=== PATIENT | male | born 2000 | race Caucasian/White ===

== ENCOUNTER → 2020-09-18 | Outpatient (CLI) | payer OTHER, SELFPAY | END | disposition home or self-care (01) | LOC: LABSPEC 17:42 | PROVIDERS: PCP Family Medicine; Referring Provider Family Medicine; Visit Provider Family Medicine | DX: U07.1 COVID-19 (principal) | CPT/HCPCS: 87635; U0003 ==

== ENCOUNTER 2021-11-19 13:46 | Outpatient (CLI) | payer OTHER, SELFPAY | END 2021-11-19 23:59 | disposition short-term general hospital (02) | PROVIDERS: PCP Family Medicine; Referring Provider Family Medicine; Visit Provider Family Medicine | DX: U07.1 COVID-19 (principal) | CPT/HCPCS: 87635; U0003; U0005 ==

== ENCOUNTER → 2025-08-20 | Outpatient (CLI) | payer OTHER, SELFPAY ==
[2025-08-21 14:27] LABS: Mucous, Urine 0 SEEN /hpf (<or=2+); Red Blood Cells-Urine 0 SEEN /hpf (0-5)
[2025-08-21 18:20] LABS: Color, Urine Yellow (Yellow); Glucose, Dipstick Normal (Normal); Ketone-Dipstick Negative (Negative); Leukocyte Esterase-Dipstick Negative /ul (Negative); Nitrite-Dipstick Negative (Negative); Occult Blood-Urine 50 /ul (Negative); Protein-Dipstick Negative (Negative); Specific Gravity, Urine 1.010 (1.002-1.030); Urine Bilirubin Dipstick Negative (Negative)
[2025-08-21 20:08] LABS: Squamous Epithelial Cells - UA 0-5 SEEN /hpf (0-5)
== END | disposition home or self-care (01) ==
LOC: LABSPEC 08-21 14:26
PROVIDERS: PCP Family Medicine; Visit Provider Family Medicine
DX: R10.9 Unspecified abdominal pain (principal)
CPT/HCPCS: 81001; 87086

== ENCOUNTER 2025-11-04 16:38 | Emergency (ER) | payer OTHER, SELFPAY ==
[2025-11-04 16:39] VITALS: BP 155/100; PULSE 86; RESP 15; TEMP 36.1; O2SAT 97; BMI 24.3
--- NOTE | 2025-11-04 16:58 | EKG12_ITS ---
Test Reason : CP Blood Pressure : */* mmHG Vent. Rate : 74 BPM Atrial Rate : 74 BPM P-R Int : 146 ms QRS Dur : 90 ms QT Int : 382 ms P-R-T Axes : 77 27 42 degrees QTcB Int : 424 ms Normal sinus rhythm with sinus arrhythmia Normal ECG Confirmed by Temo Campbell ([id number]), avid editor CARLOS TOLEDO ([id number]) on 11/10/2025 9:02:29 AM Referred By: AK/TA Confirmed By: Temo Campbell
--- NOTE | 2025-11-04 17:00 | EDS_ITS ---
HPI History of Present Illness Chief Complaint: Chest Pain Narrative Narrative: Chief complaint and HPI: 25-year-old male with past medical history of asthma, anxiety presents for evaluation of chest pain. Patient states that he has had intermittent chest pain in the past in which they were related to panic attacks. States he is supposed to be on Lexapro. States he ran out for the past month in which she has noticed that his anxiety has been worse. Patient states the last 2 days he has been having intermittent chest pain which he describes as sharp. 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 Pain is intermittent. He denies any fever, chills, shortness of breath, abdominal pain, nausea, vomiting. He is a non-smoker. No history of CAD. Review of systems: See HPI Medications: As listed on the chart Allergies: As listed on the chart PFSH: Per chart Vital signs: As listed on the chart. Reviewed. Physical exam: Gen: A&O x3, NAD but mildly anxious Head: Normocephalic, atraumatic Eyes: No sclera icterus, conjunctiva clear ENT: Moist mucous membranes Neck: Trachea midline, No JVD CV: RRR, no murmurs, no peripheral edema Resp: Lungs CTA BL, no w/r/c GI: Abd soft, non-distended, non-tender, no r/r/g Musc: Full ROM, no deformity Skin: Warm, dry Neuro: Alert, oriented, grossly intact, sensation intact Psych: Cooperative, appropriate mood and affect but mildly anxious PFS PFSH Medical History Asthma exacerbation Left lower lobe pulmonary infiltrate Home Medications ?Medication ?Instructions ?Recorded ?Last Taken ?Type NK 11/04/25 Unknown History Allergy/AdvReac Type Severity Reaction Status Date / Time No Known Allergies Allergy Verified 11/04/25 16:40 Social History Smoking Status: Never smoker EXAM Physical Exam Const Vital Signs: 11/04/25 16:39 11/04/25 16:44 11/04/25 18:39 Temperature 97 F L Temperature Source Temporal Pulse Rate 86 53 L Respiratory Rate 15 16 Respiratory Effort Normal Respiratory Pattern Normal Blood Pressure 155/100 H 123/72 H Blood Pressure Mean 118 89 Pulse Ox 97 Oxygen Delivery Method Room Air Room Air MDM MDM MDM Narrative Medical decision making narrative: 25-year-old male with past medical history of asthma, anxiety presents for evaluation of chest pain. Patient states that he has had intermittent chest pain in the past in which they were related to panic attacks. States he is supposed to be on Lexapro. States he ran out for the past month in which she has noticed that his anxiety has been worse. Patient states the last 2 days he has been having intermittent chest pain which he describes as sharp. Differential diagnosis includes but is not limited to myofascial spasm, pleurisy, anxiety, arrhythmia, electrolyte abnormality, suspect less likely ACS. Aspirin ordered. Patient is mildly anxious on exam, he was offered Ativan but declined. Cardiac workup ordered.CBC unremarkable without anemia or leukocytosis. D-dimer unremarkable. BMP unremarkable. Troponin unremarkable x 2. On reevaluation, patient is asymptomatic. At this point in time, no clear etiology for his chest pain however may be related to musculoskeletal with anxiety. Recommend following up with primary care physician. Patient agreement understand the plan. Patient will discharge home. Return precautions explained. EKG: Interpreted by me/EM physician: EKG shows normal sinus rhythm with sinus arrhythmia. Heart rate 74. No QTc prolongation. No acute ischemic changes. Diagnostic: Interpreted by me/EM physician:Chest x-ray without pneumonia, effusion, cardiomegaly, pneumothorax Impression: 1. Chest pain 2. Anxiety with history of anxiety Lab Data Labs: Laboratory Results - last 24 hr 11/04/25 11/04/25 17:11 19:10 WBC 7.7 RBC 5.54 Hgb 15.6 Hct 46.2 MCV 83.4 MCH 28.2 MCHC 33.8 RDW Std Deviation 40.3 RDW Coeff of Dylan 13.2 Plt Count 289 MPV 9.0 Immature Gran % (Auto) 0.400 Neut % (Auto) 64.6 Lymph % (Auto) 25.8 [place] % (Auto) 8.1 Eos % (Auto) 0.6 Baso % (Auto) 0.5 Absolute Neuts (auto) 5.0 Absolute Lymphs (auto) 2.00 Nucleated RBC % 0 D-Dimer Quant (PE/DVT) 0.27 Sodium 140 Potassium 3.9 Chloride 103 Carbon Dioxide 25.7 Anion Gap 11 BUN 12 Creatinine 0.83 Estim Creat Clear Calc 138.04 Est GFR (MDRD) Non-Af 123 BUN/Creatinine Ratio 13.9 Glucose 109 H Calcium 9.8 Troponin T High Sens 6 Troponin T Hi Sens 2 Hr < 6 Radiography Diagnostic Testing: Clinical Impression(s) from Imaging Studies Chest X-Ray 11/04/25 17:12 IMPRESSION: No focal consolidations Reading Location: [facility] Discharge Plan Triage Chief Complaint: Chest Pain ED Provider: Ranjit Walls Dx/Rx/DC Orders Prescriptions: No Action NK Primary Care Provider: Darius Castano Referrals: Darius Castano MD [Primary Care Provider, Family Practice] Print Language: [place]
--- NOTE | 2025-11-04 17:12 | RAD_ITS ---
PROCEDURE: CHEST PA AND LATERAL 11/04/2025 REASON FOR EXAM: CHEST PAIN TECHNIQUE: Procedure Code: RADCXR Modality: DX Procedure: CHEST PA AND LATERAL FINDINGS: No focal consolidation. No pleural effusion or pneumothorax. Cardiac silhouette is within normal limits. No acute fractures. RAD/Chest PA and Lateral IMPRESSION: No focal consolidations Reading Location: [facility]
[2025-11-04 17:21] LABS: Hematocrit 46.2 % (40-54); Hemoglobin 15.6 g/dL (13.0-16.5); Immature Granulocytes Count 0.030 X10^3/uL (0.0-0.0); Mean Corp Hgb Conc 33.8 g/dL (32-36); Mean Corpuscular Volume 83.4 fL (80-94); Mean Platelet Vol. 9.0 fl (6.2-12.0); NRBC Flagged by Analyzer 0 % (0-5); Platelet Count 289 K/mm3 (150-450); RBC Distribution Width CV 13.2 % (11.6-14.6); RBC Distribution Width SD 40.3 fl (35.1-43.9); Red Blood Count 5.54 M/mm3 (4.6-6.2); White Blood Count 7.7 K/mm3 (4.4-11.0)
[2025-11-04 17:36] LABS: D-Dimer Quantitative (DVT/PE) 0.27 FEU/ug/m (0.27-0.49)
[2025-11-04 17:42] LABS: Anion Gap 11 (7-18); BUN 12 mg/dL (4-19); BUN/Creat Ratio 13.9 RATIO (10-20); Calcium,Total 9.8 mg/dL (7.6-11.0); Carbon Dioxide 25.7 mmol/L (20.0-29.0); Chloride 103 mmol/L (96-106); Estimated Creatinine Clearance 138.04 ml/min (50-250); Glucose 109 mg/dL (70-99); Potassium 3.9 mmol/L (3.5-5.1); Troponin T High Sensitivity 6 ng/L (<=22)
[2025-11-04 18:39] VITALS: BP 123/72; PULSE 53; RESP 16
[2025-11-04 19:35] LABS: Troponin T High Sens 2 HR < 6 ng/L (<=22)
[2025-11-04 19:48] VITALS: BP 122/79; PULSE 61; RESP 18; TEMP 36.1; O2SAT 98
--- OUTSIDE RECORDS SUMMARY | 2025-11-04 20:27 | XMS RPT_ITS | CCD ---
Author Organization [facility] Care Team Providers Care Associate Financial Planner Name Role Phone Eyad HERNANDEZ, Dr. Mccoy Primary Care Provider Dr. Darius Castano MD Referring Provider Isidoro Younger Attending Provider [phone] Omid BARRETO Attending Unavailable Darius Castano Attending Unavailable Darius Castano Primary Care Unavailable Isidoro Younger Attending Unavailable Darius Castano Referring Unavailable Darius Castano Primary Care Unavailable Medications Current Medications Medication Drug Class(es) Dates Sig (Normalized) Sig (Original) 200 actuat albuterol 0.09 mg/actuat dry powder inhaler (2 sources) beta2-Adrenergic Agonist Start: 04-08-2025 Albuterol Sulfate 90 mcg/actuation aerosol powdr breath activated Active 2 NMA INHALATION EVERY 6 HOURS as needed April 08, 2025 12:00am Start: 04-08-2025 Albuterol Sulf ate (Ventolin Hfa) 90 mcg/actuation HFA aerosol inhaler Active 2 NMA INHALATION EVERY 6 HOURS as needed for shortness of breath or wheezing 8.5 April 08, 2025 12:00am levoFLOXacin 750 mg oral tablet (1 source) Quinolone Antimicrobial Start: 04-08-2025 take 1 tablet by mouth every twenty-four hours Levofloxacin 750 mg tablet Active 750 mg PO Q24H 7 April 08, 2025 12:00am predniSONE 10 mg oral tablet (1 source) Start: 04-08-2025 take 4 tablets by mouth once daily, then take 3 tablets by mouth once daily, then take 2 tablets by mouth once daily, then take 1 tablet by mouth once daily Prednisone 10 mg tablet Active 10 mg PO DAILY 30 April 08, 2025 12:00am 4 tablets daily x3 days, then 3 tablets daily x3 days, then 2 tablets daily x3 days, then 1 tablet daily x3 days Problems Problem Classification Problem Date Documented Da te Episodic/Chronic Abdominal pain (1 source) Unspecified abdominal pain; Translations: [Unspecified abdominal pain] Onset: 09-04-2025 Episodic Essential hypertension (1 source) Hypertensive disorder; Translations: [Essential (primary) hypertension] 04-08-2025 Chronic Other lower respiratory disease (1 source) Dyspnea; Translations: [Shortness of breath] 04-08-2025 Episodic Results Test Name Value Interpretation Reference Range Facil ity Urine Cultureon 08-22-2025 [facility] Order Date: 08/20/25 Order Info: 630-4 - [facility] Culture exhibits no growth. Normal [facility] Comment on above: Performed By: #### L 400.0001, M100.2200 #### [facility] [address] [place], [address] Urinalysis, Completeon 08-21 EPI,SQUAMOUS 0-5 SEEN Normal 0-5 [facility] Comment on above: Order Comment: Order Date: 08/20/25 Order Info: [id number] - [facility] BOTTLE SELECTOR TO SPECIFY Performed By: #### L 400.0001, M100.2200 #### [facility] [address] [place], [address] WBC 0-5 SEEN Normal 0-5 [facility] Comment on above: Order Comment: Order Date: 08/20/25 Order Info: [id number] - [facility] BOTTLE SELECTOR TO SPECIFY Performed By: #### L 400.0001, M100.2200 #### [facility] [address] [place], [address] BACTERIA 0 SEEN Normal None Seen [facility] Comment on above: Order Comment: Order Date: 08/20/25 Order Info: [id number] - [facility] BOTTLE SELECTOR TO SPECIFY Performed By: #### L 400.0001, M100.2200 #### [facility] [address] [place], [address] Mucus Ql (Urine sed) 0 SEEN Normal [facility] Comment on above: Order Comment: Order Date: 08/20/25 Order Info: [id number] - [facility] BOTTLE SELECTOR TO SPECIFY Performed By: #### L 400.0001, M100.2200 #### [facility] [address] [place], [address] RBC 0 SEEN Normal 0-5 [facility] Comment on above: Order Comment: Order Date: 08/20/25 Order Info: [id number] - [facility] BOTTLE SELECTOR TO SPECIFY Performed By: #### L 400.0001, M100.2200 #### [facility] [address] [place], [address] Urgent Care Visit Reporton 0 04-08-2025 Urgent Care Visit Report [facility] [address], [address] [place] [address] OFFICE VISIT Date of Service: 04/08/25 MR#: [id number] Acct: [id number] Name: EMI ARVIZU Angel Rep #: [id number] : 2000 Provider: MARY Linares Age/Sex: 24/M Location: [facility] Status: Signed Intake Vital Signs 04/08/25 17:45 Height 5 ft 10 in Weight: 169 lb BMI 24.2 BP 102/62 Position Sitting Pulse 82 Temp 98.1 F Temp Source Oral Pulse Oximetry (%) 97 Oxygen Delivery Method room air Intake Visit Reasons: CHEST CONGESTION Accompanied by: Self Allergies No Known Allergies Allergy (Unverified 04/08/25 17:45) Medications ???Medication ???Instructions ???Recorded ???Confirmed ???Type albuterol sulfate 90 mcg/actuation 2 puff inhalation Q6H PRN 04/08/25 Rx aerosol inhaler (Ventolin HFA) shortness of breath or wheezing #8.5 grams albuterol sulfate 90 mcg/actuation 2 inh inhalation Q6H PRN 5 04/08/25 History breath activated powder inhaler levofloxacin 750 mg tablet 750 mg PO Q24H #7 tabs 04/08/25 Rx prednisone 10 mg tablet 10 mg PO DAILY #30 tabs 04/08/25 0 04/08/25 Rx Nurse's Note: Patient has chest congestion going on for 4 days with unusual tiredness. Patient states her has asthma and has to use his inhaler more. Patient states he has sinus pressure drainage and its settling in his chest. [facility] Medical History (Updated 04/08/25 @ 18:12 by Isidoro HERNANDEZ, PA) Asthma exacerbation Left lower lobe pulmonary infiltrate HPI HPI Details: EMI ARVIZU, is a 24 M who presents to the office today for initial evaluation 3-day history of progressively worsening cough and wheezing with remarkable increase in fatigue over the last 48 hours or so patient so states with concurring. Patient also appreciates chills though no fever; no complaints of sweats or rash or lightheadedness/dizzin ess or nausea/vomiting, or chest pressure/shortness of breath though mild dyspnea on exertion. He notes no wheezing currently. Non- smoker. No close contacts with similar complaints. Refusing all POC screening and chest x-ray upon offering. Albuterol inhaler helped initially but not over the last 24 hours or so he so states. No other associated symptoms and no other alleviating/aggravatin g factors. 3 day cough - worsening fatigue pmh asthma LLL crackles refused cxr levoflox, prednisone ROS Const Constitutional: No other (As above) Exam Const General: cooperative, healthy appearing and no acute distress Nutritional Appearance: average body habitus Orientation: alert and awake [facility] Head: normal to inspection Ears: hearing grossly normal bilaterally, external ears normal, TM's normal bilaterally and EAC's normal Nose: external nose normal, nares normal, septum normal and no nasal discharge Face and sinus: normal facial exam, sinuses nontender and face symmetric Mouth: oral mucosae normal, lip normal, tongue normal, oropharynx normal and moist mucous membranes Throat: posterior oropharynx normal, tonsils normal, uvula midline and no postnasal drainage Eyes General: appearance normal, both eyes and all related structures Neck Neck: normal visual inspection, full ROM, no lymphadenopathy, no meningeal signs and supple Neck mass: No Thyroid: thyroid normal Lymphatic: no lymphadenopathy noted Chest Chest palpation inspection: normal inspection of the chest Resp Effort Inspection: normal respiratory effort and able to speak in complete sentences Auscultation: Left: Crackles (Left lower lobe) and Right: Clear to Auscultation Cardio Palpation: normal PMI Rate: regular rate Rhythm: regular rhythm Heart Sounds: S1 normal, S2 normal, no gallops, no murmurs and no rubs Pulses: radial pulses present GI Inspection: normal to inspection Palpation: soft Skin General: no rashes or lesions noted Neuro General: patient alert and patient awake Cognition: normal cognition Speech: speech normal Psych Appearance: grossly normal Mental Status: mental status grossly normal Mood: congruent mood Affect: normal affect Speech and Movement: speech and movement normal Attitude: cooperative Coding Level of Care Code Off vis,new,level 3 Diagnoses Left lower lobe pulmonary infiltrate R91.8 Asthma exacerbation J45.901 Assessment and Plan Assessment and Plan (1) Left lower lobe pulmonary infiltrate: Status: Acute (2) Asthma exacerbation: Status: Acute Plan: Patient refusing chest x-ray all POC screening at this time. Levofloxacin, prednisone, and albuterol inhaler as prescribed today. Supportive measures as instructed today. Follow-up with PCP in 3 to 5 days should symptoms not improve, ED sooner should symptoms only worsen or any other concerns develop. Pat (more content not included)... Normal [facility] Vital Signs Date Time Vital Sign Value Performing Clinician Faci scott 04-08-2025 17:45-0400 Body height 177.[address] Darius Castano MD Work Phone: [facility] 04-08-2025 17:45-0400 Body mass index (BMI) [Ratio] 24.2 kg/m2 Dr. Darius Castano MD Work Phone: [facility] 04-08-2025 17:45-0400 Body temperature 98.1 [degF] Dr. Darius Castano MD Work Phone: [facility] 04-08-2025 17:45-0400 Body weight 76.[address] Darius Castano MD Work Phone: [facility] 04-08-2025 17:45-0400 Diastolic blood pressure 62 mm[Hg] Dr. Darius Castano MD Work Phone: [facility] 04-08-2025 17:45-0400 Heart rate 82 /min Dr. Darius Castano MD Work Phone: [facility] 04-08-2025 17:45-0400 SaO2% (BldA) [Mass fraction] 97 % Dr. Darius Castano MD Work Phone: [facility] 04-08-2025 17:45-0400 Systolic blood pressure 102 mm[Hg] Dr. Darius Castano MD Work Phone: [facility] Encounters Encounter Date Encounter Type Care Provider Facility Start: 08-20-2025 End: 08-20-2025 ambulatory Darius Castano Facility:[facility] Start: 2025 End: 2025 ambulatory Omid BARRETO Facility:[facility] Start: 04-08-2025 End: 04-08-2025 Patient encounter procedure Isidoro Montgomery MS -[facility] Work Phone: Start: 04-08-2025 End: 04-08-[address] Darius Castano MD Work Phone: [facility] Work Phone: Payers Date Payer Category Payer Self-pay 2025 Unknown [id number] Unknown COMMERCIAL OTHER [id number] Unknown [id number] Unknown [id number] Social History Date Type [facility]ail [facility] Work Phone: Start: 2000 Sex Assigned At Male [facility] Evaluation note Note Date & Type Note Facility Evaluation note No assessment information availa ble [facility] Work Phone: Reason for referral (narrative) Note Date & Type Note Facility Reason for referral (narrative) No reason for referral information available [facility] Work Phone: Chief Complaint and Reason for Visit Chief Complaint Admit Date CHEST CONGESTION April 08, 2025 5:38p m Summary Purpose Family History No Family History Records FoundNo Family History Records Found Advance Directives No Advanced Directives Records FoundNo Advanced Directives Records Found Additional Source Comments Care Teams (unrecognized sec tion and content) Team Status: Active Member Role Status Dates Dr. Darius Castano MD Family Provider Active Dr. Darius Castano MD Primary Care Provider Acti ve Team Status: Inactive Member Role Status Dates Dr. Darius Castano MD Primary Care Provider Acti ve Start: April 08, 2025 End: April 08, 2025 Dr. Darius Castano MD Referring Provider Active Start: April 08, 2025 End: April 08, 2025 Isidoro HERNANDEZ PA Attending Provider Active Start: April 08, 2025 End: April 08, 2025 Goals (unrecognized section and content) Goals may be documented in a n alternate section (unrecognized sect ion and content) No Status Records FoundNo Status Records Found INFORMATION SOURCE (unrecogn ized section and content) DATE CREATED AUTHOR 07/30/2025 [facility] DATE CREATED AUTHOR AUTHOR'S ORGANIZ ATION 09/05/2025 [facility] FOR RECORDS PERTAINING TO PATIENTS WHO ARE OR HAVE BEEN ENROLLED IN A CHEMICAL DEPENDENCY/SUBSTANCEABUSE PROGRAM, SOME INFORMATION MAY BE OMITTED. This clinical summary was aggregated from multiple sources. Caution should be exercised in using it in the provision of clinical care. This summary normalizes information from multiple sources, and as a consequence, information in this document may materially change the coding, format and clinical context of patient data. In addition, data may be omitted in some cases. CLINICAL DECISIONS SHOULD BE BASED ON THE PRIMARY CLINICAL RECORDS. [employer] [facility]. provides no warranty or guarantee of the accuracy or completeness of information in this document.
== END 2025-11-04 19:53 | disposition home or self-care (01) ==
PROVIDERS: Emergency Provider Surgery; PCP Family Medicine; Visit Provider Surgery
DX: R07.9 Chest pain, unspecified (principal); F41.0 Panic disorder [episodic paroxysmal anxiety]
CPT/HCPCS: 71046; 80048; 84484; 85025; 85379; 93005; 99284; A4216